=== PATIENT | female | born 1970 | race Caucasian/White ===

== ENCOUNTER → 2021-01-30 13:54 | Outpatient (CLI) | payer OTHER, SELFPAY ==
--- NOTE | 2021-01-31 16:43 | DIAB.MNT ---
Initial Diabetes Medical Nutrition Therapy Assessment Name: Marielle Shukla Date: 01/30/21 Time: 2-330p Dx: Type II Diabetes Provider: Leola Nicolas Learning Style: Listening, watching Marielle presents for initial diabetes visit. PMH: HLD, JANNA, Fatty liver, hiatal hernia, hysterectomy. States her BP has been borderline elevated. Reports FH of T2Dm with paternal aunt and cousins. No immediate family FH. States she has had DM for about one year. Recently started Metformin in June. Reports GI SE with Metformin 1000 mg BID. States this is much better (but not eliminated) with 1500 mg daily. She may consider trying extended release for more GI comfort, if provider agrees. Endorses eating with Metformin. Marielle endorses dental exam within the last 6 months. Has eye exam scheduled for April. Has not received her flu shot, though did complete covid vaccine series. Reports high blood sugar symptoms: headaches, fatigue, blurred vision. She seems very motivated to learn about diabetes and make lifestyle changes. States today she would primarily like to learn about nutrition and diabetes complication risk reduction. Also, displays limited knowledge about DM pathophysiology. States she would like to manage BG with lifestyle and eventually d/c medication. Lives with her ex as a roommate. Amicable situation. Diet Recall: 8a: eggs, banana 1130a: high sodium split pea or squash soup or salad pack or teresita ayala sandwich 430p: chicken with 2c rice OR mat OR taco alvarado 2 calderon burritos OR 1c tortellini with sauce OR 2-4 hard shell tacos Snack +/-: cheese if hungry HS snack: nothing or 1c khmer yogurt with 1c frozen berries Beverages: water 24oz x 3-4, coffee with 1 TBs sweet creamer Food allergies: gluten (migraines), lactose (diarrhea), oranges, kiwi, celery, strawberries (burn/numb mouth). Anthropometrics: Ht: 5'11 Wt: 230# (reported) Physical Activity: Stationary bike started last week (4x last week for 15 min ea) Self-Monitoring Blood Glucose: 2/7 BG readings in range per ADA guidelines (80-130 mg/dL) for fastings. Has recently increased physical activity. Endorses 8 hours or more fasting over night. Will re-evaluate next visit. Date Pre Post Pre Post Pre Post HS 01/21 157 01/20 167 01/13 138 01/08 133 01/07 130 01/06 146 01/05 124 Diabetes Medications: Metformin 500 mg (am) and 1000 mg (pm) Pertinent Labs: Marielle reports recent hgA1c slight increase from previous of 6.8% in 09/202001/07/21 HgA1c 6.9% Cholesterol 156 T H HDL: 33 L VLDL: 51 H LDL: 72 Past Medical History: (Last Updated 09/26/20 @ 22:45 by OSVALDO Rizo) Allergic rhinitis (~07/14/10) Chronic sinusitis (~06/24/05) Depression (~07/14/10) Excessive daytime sleepiness Hypothyroidism (07/14/10) Insomnia Migraine headache (~07/14/10) Obesity (BMI 30-39.9) Obstructive sleep apnea of adult Pure hyperglyceridemia (07/14/10) Nutrition Rx: Carbohydrates: Meal:30-45 Snack: 15-30 Nutrition Diagnosis: - Excessive CHO intake r/t nutrition related knowledge deficit for portions at dinner aeb diet recall - Inadequate fiber intake r/t nutrition related knowledge deficit and low vegetable or whole grain intake aeb diet recall - Excessive sodium intake r/t lunch choices/portions of convenience foods aeb diet recall Intervention: This participant was very receptive. Provided appropriate educational handouts. Discussed the following topics: Completed intake assessment. Discussed barriers to care. Pathophysiology of T2DM HgA1c, its correlation to blood glucose numbers Importance of self-monitoring, how often, and when to check. Suggested checking at different times to evaluate meals Plate Method, impact of macronutrients on blood sugar, meal timing, carbohydrate counting, pairing macronutrients and spreading out carbohydrates for better blood glucose management Recommended servings for carbohydrates at meals and snacks based on EER and current intake Heart health nutrition Brainstormed appropriate meal plan based on food preferences Role of physical activity and following provider guidelines for safety Created SMART goals for patient self-care and success. Goals: Discuss provider thoughts on ER Metformin given continued diarrhea at times Try checking a few 1-2 hour postprandial BG Add vegetables to dinner Follow-up: SAURAV MUNIZ follow-up in 2-3 weeks Next visit topics: complication risk reduction, physical activity Jovita Barajas RDN, C[facility] Certified Diabetes Care and Business Specialist P: [phone] Thank you for this referral
== END ==
PROVIDERS: Family Provider Physician Assistant; PCP Naturopath; Referring Provider Naturopath; Visit Provider Naturopath
DX: E11.9 Type 2 diabetes mellitus without complications (principal); E78.5 Hyperlipidemia, unspecified; G47.33 Obstructive sleep apnea (adult) (pediatric); K76.0 Fatty (change of) liver, not elsewhere classified; K44.9 Diaphragmatic hernia without obstruction or gangrene; Z79.84 Long term (current) use of oral hypoglycemic drugs; Z71.3 Dietary counseling and surveillance
CPT/HCPCS: 97802

== ENCOUNTER → 2021-02-13 09:24 | Outpatient (CLI) | payer OTHER, SELFPAY ==
--- NOTE | 2021-02-13 16:12 | DIAB.MNTFU ---
Follow-up Diabetes Medical Nutrition Therapy Assessment Name: Marielle Shukla Date: 02/13/21 Time: 684-4810m Dx: Type II Diabetes Marielle presents for diabetes follow-up. States she has added high fiber bread to breakfast for more satiety. Reports this has also helped with the impact that Metformin has on her GI. Marielle would like to continue with 1500 mg Metformin until she sees her provider at the end of February, then will consider increasing to full dose prn. States she has successfully decreased the sodium in her salad dressing by reducing the portion. Has not reduced high sodium soup intake yet, but open to ideas for this. States her biggest challenge right now is skipping dinner and grazing on snacks through the night. Reports she does not feel like making dinner at the end of the night and will graze on pretzels, cheese, almonds, and apple sauce. Reports improved sleep recently with eye mask and ear plug use. Anthropometrics: Ht: 5'11 Wt: 230# (reported last visit) Physical Activity: Was aiming to use stationary bike daily for 15 min. This was stopped after she started having back pain and headaches with bike use. Has been seeing chiropractor, which helped. Plans to return to activity. States she knows she should have 30 mins of activity, but has a hard time getting past 15 min at this time. Self-Monitoring Blood Glucose: 2/6 in range FBG. Most after meal, pre lunch, and HS readings within goal. 2/4 in range post breakfast; 4/4 in range after lunch. Seems that most of her hyperglycemia is fasting despite a 8-12 hour fast. After meal hyperglycemia tied to larger portions of carbs, ie 2c quinoa on 02/10 breakfast. Date Pre Post Pre Post Pre Post HS 02/07 149 141 02/08 124 95 173 156 02/09 127 118 116 124 129 02/10 137 not true fast 208 139 171 02/11 151 182/107 1hr/2hr 125 02/12 134 122 02/13 143 Diabetes Medications: Metformin 500 mg (am) and 1000 mg (pm) Pertinent Labs: Marielle reports recent hgA1c slight increase from previous of 6.8% in 09/202001/07/21 HgA1c 6.9% Cholesterol 156 T H HDL: 33 L VLDL: 51 H LDL: 72 Past Medical History: (Last Updated 09/26/20 @ 22:45 by OSVALDO Rizo) Allergic rhinitis (~07/14/10) Chronic sinusitis (~06/24/05) Depression (~07/14/10) Excessive daytime sleepiness Hypothyroidism (07/14/10) Insomnia Migraine headache (~07/14/10) Obesity (BMI 30-39.9) Obstructive sleep apnea of adult Pure hyperglyceridemia (07/14/10) Nutrition Rx: Carbohydrates: Meal:30-45 Snack: 15-30 Nutrition Diagnosis: - Excessive CHO intake r/t nutrition related knowledge deficit for portions at dinner aeb diet recall- improved/in progress - Inadequate fiber intake r/t nutrition related knowledge deficit and low vegetable or whole grain intake aeb diet recall- improved - Excessive sodium intake r/t lunch choices/portions of convenience foods aeb diet recall- -improved/in progress Intervention: This participant was very receptive. Provided appropriate educational handouts. Discussed the following topics: Blood sugar review and trends. Impact of food intake on results. Plate Method, impact of macronutrients on blood sugar Heart health nutrition: sodium Protein reccs FBG and gluconeogenesis HS snack ideas Meal planning and carb counting review Physical activity plan and progress: small increments of 10-15 min through the day Created SMART goals for patient self-care and success. Goals: Discuss provider thoughts on ER Metformin given continued diarrhea at times- d/c Try checking a few 1-2 hour postprandial BG- met Add vegetables to dinner- in progress Try a new dinner idea- new Try HS paired snack- new Try 2 x 15 min bike exercise increments in a day- new Follow-up: SAURAV MUNIZ follow-up in 4 weeks Jovita Barajas RDN, CRIST[facility] Certified Diabetes Care and Aviation Operations Specialist P: [phone] Thank you for this referral
== END ==
PROVIDERS: Family Provider Physician Assistant; PCP Naturopath; Referring Provider Naturopath; Visit Provider Naturopath
DX: E11.9 Type 2 diabetes mellitus without complications (principal)
CPT/HCPCS: 97803

== ENCOUNTER → 2021-03-26 12:38 | Outpatient (CLI) | payer OTHER, SELFPAY ==
--- NOTE | 2021-03-26 15:56 | DIAB.FU ---
Follow-up Diabetes Education Assessment Name: Marielle Shukla Date: 03/26/21 Time: 1-125p Dx: Type II Diabetes Marielle presents for diabetes follow-up. States she has increased metformin to rx'd dose of 1000 mg BID without SE. Not much change in BG (see SMBG below). Continues with diet changes discussed. She is enjoying the picnic dinners that do not require cooking but are balanced with protein, carb, and veg. Tried changes with HS snack, but she did not see a change in FBG. Not tired of meals and wants to cont current eating plan. Main complaint is gallbladder and dull to sharp pain. Has surgeon appt on 04/02/21. Has called ER about pain, but she was only offered pain management. So she would prefer to wait until Jero appt. States she does not check her feet daily but does not see why she needs to. Current BG mostly well managed. Has seen dentist, and computer specialist is scheduled for apr 2021. Does not get her flu shot. Plans to get new hgA1c 04/15/21 Physical Activity: No program. With abdominal pain she is not comfortable exercising, alex on her stationary bike. Headaches were previously the barrier but are gone. Self-Monitoring Blood Glucose: Most FBG slightly elevated. After meal in range. FBG run 130-150 mg/dL and pc readings often 90-180 mg/dL Diabetes Medications: Metformin 1000 mg BID Pertinent Labs: Marielle reports recent hgA1c slight change from previous of 6.8% in 09/202001/07/21 HgA1c 6.9% Cholesterol 156 T H HDL: 33 L VLDL: 51 H LDL: 72 Past Medical History: (Last Updated 09/26/20 @ 22:45 by OSVALDO Rizo) Allergic rhinitis (~07/14/10) Chronic sinusitis (~06/24/05) Depression (~07/14/10) Excessive daytime sleepiness Hypothyroidism (07/14/10) Insomnia Migraine headache (~07/14/10) Obesity (BMI 30-39.9) Obstructive sleep apnea of adult Pure hyperglyceridemia (07/14/10) Intervention: This participant was very receptive. Provided appropriate educational handouts. Discussed the following topics: Recent blood sugar results and trends Medication management vs increasing exercise when able Phys activity barriers Review of general nutrition recommendations and current intake Prevention of complications class and follow-up options for the future Created SMART goals for patient self-care and success. Goals: Try a new dinner idea- met Try HS paired snack- met Try 2 x 15 min bike exercise increments in a day- not met Continue current eating plan- new try to inc activity as able- new Follow-up: SAURAV MUNIZ follow-up prn. Encouraged her to call if she has any questions, concerns or follow-up needs. Seems likely that she is having some gluconeogenesis overnight impacting her FBG. Possible that inc physical activity could bring these BG down, but currently she is unable to implement an activity plan. She is hoping to increase activity sometime after March pending gallbladder plan. Jovita Barajas RDN, [facility] Certified Diabetes Care and Machine Sign Writer P: [phone] Thank you for this referral
== END ==
PROVIDERS: Family Provider Physician Assistant; PCP Naturopath; Referring Provider Naturopath; Visit Provider Naturopath
DX: E11.9 Type 2 diabetes mellitus without complications (principal); Z79.84 Long term (current) use of oral hypoglycemic drugs
CPT/HCPCS: G0108

== ENCOUNTER → 2022-07-30 06:52 | Outpatient (CLI) | payer OTHER, SELFPAY ==
--- NOTE | 2022-07-30 | DI.CT.S_ITS ---
PROCEDURE: CT ABDOMEN PELVIS W CON INDICATIONS: Right lower quadrant pain TECHNIQUE: After the administration of oral and IV contrast, axial sections were acquired from the lung bases to the pubic symphysis. Coronal and sagittal reformats were performed. For radiation dose reduction, the following was used: automated exposure control, adjustment of mA and/or kV according to patient size. COMPARISON: [facility], CT, KIDNEY/ URETER/BLADDER, 08/02/2007, 11:26. FINDINGS: Image quality: Excellent. Lung bases: No pleural effusion. Bibasilar atelectasis. Heart: No significant findings. ABDOMEN: Liver: No focal lesion. Gallbladder: Absent. Biliary ducts: Unremarkable. Pancreas: Unremarkable. Spleen: Unremarkable. Adrenal Glands: Unremarkable. Kidneys and Ureters: Unremarkable. Stomach and Bowel: Stomach, small bowel loops, and colon are unremarkable. The appendix is not dilated. Peritoneum: No abnormal intraperitoneal fluid. No free air. Ventral Wall: No hernia. Abdominal Nodes: No retroperitoneal or mesenteric adenopathy by size criteria. Vessels: Aorta and inferior vena cava are normal in size. PELVIS: Pelvic Organs: Uterus is absent. Bladder: Not significantly distended. No stone. Pelvic Nodes: No enlarged lymph nodes. Miscellaneous: No inguinal hernias are seen. Bones: No suspicious lesion. IMPRESSION: Source for right lower quadrant abdominal pain is not identified. The appendix is not dilated. No free fluid. Dictated by: Mike Henderson M.D. on 07/30/2022 at 10:02 Approved by: Mike Henderson M.D. on 07/30/2022 at 10:10
== END ==
PROVIDERS: Family Provider Physician Assistant; PCP Naturopath; Referring Provider Naturopath; Visit Provider Naturopath
DX: R10.31 Right lower quadrant pain (principal)
CPT/HCPCS: 74177; Q9967

== ENCOUNTER → 2025-02-13 12:46 | Outpatient (CLI) | payer OTHER, SELFPAY ==
--- NOTE | 2025-02-13 12:47 | DI.RAD.S_ITS ---
PROCEDURE: XR WRIST RT MIN 3V INDICATIONS: Right wrist sprain generalized tenderness TECHNIQUE: 4 views of the wrist were acquired. COMPARISON: None. FINDINGS: Bones: No fractures or dislocations. [id number] right wrist joint osteoarthritic changes are seen most notably involving 1st CMC joint. No suspicious bony lesions. Soft tissues: No suspicious soft tissue calcifications. IMPRESSION: [id number] right wrist joint osteoarthritis. No acute fracture or dislocation. No gross soft tissue abnormalities. Dictated by: Sachin Oquendo M.D. on 02/13/2025 at 13:27 Approved by: Sachin Oquendo M.D. on 02/13/2025 at 13:32
== END ==
PROVIDERS: Family Provider Physician Assistant; PCP Naturopath; Referring Provider Chiropractor; Visit Provider Chiropractor
DX: S63.501A Unspecified sprain of right wrist, initial encounter (principal); M19.031 Primary osteoarthritis, right wrist; X58.XXXA Exposure to other specified factors, initial encounter
CPT/HCPCS: 73110